=== PATIENT | male | born 1960 | race Caucasian/White ===

== ENCOUNTER 2022-03-16 09:18 | Day surgery (SDC) | payer OTHER, SELFPAY ==
[2022-03-16] VITALS (7 sets, daily range): BP systolic 98–128; BP diastolic 7–80; PULSE 49–61; RESP 16–61; TEMP 36.1–36.6; O2SAT 96–98; BMI 28.5
--- NOTE | 2022-03-16 | GASB_PTH ---
PATIENT: JUANITA HEATH LOC: EN U#:[id number] AGE/SX: 61/M ROOM: RE03/16/[address]: Dr. Narayan Diaz MD : 1960 BED: DIS: 03/16/2022 SPEC #: [id number] RECD: 03/16/22 14:14 STATUS: DRE JAZLYN #: [id number] TAWNY: 03/16/22 00:[address]: Narayan Diaz DEPT: SURGICAL PATHOLOGY RECD BY: Michele Franklin ENTERED: 03/16/22 14:15 SP TYPE: Gastric Bx OTHR DR: [facility] Tissues: A - Duodenum, NOS B - Gastric mucous membrane C - Esophageal mucous membrane D - Sigmoid colon biopsy Procedures: Special Stain Group II Surgery Specimen Level IV Alcian Blue/PAS (control) HEADER OPERATION: Colonoscopy with polypectomy, [place] PRE-OP DIAGNOSIS: GERD, screening TISSUE SUBMITTED: A ? Duodenum, B ? Antrum biopsy for H. pylori and path, C ? Distal esophagus biopsy, D ? Polyp biopsy distal sigmoid MICROSCOPIC DIAGNOSIS A. Duodenum, biopsy: A fragment of duodenal mucosa, no pathologic diagnosis. B. Antrum, biopsy: Mild gastritis. See microscopic description and comment. C. Distal esophagus, biopsy: Fragments of gastroesophageal mucosa with chronic inflammation. Intestinal metaplasia (goblet cell metaplasia) not identified. See comment. D. Distal sigmoid polyp, biopsy: Hyperplastic polyp. SJ:tamara 03/17/2022 COMMENT B. The results of immunohistochemistry for Helicobacter pylori will be reported separately ([id number]). C. Alcian blue/PAS stain with matched control is used in the evaluation of the specimen. MICROSCOPIC DESCRIPTION Slides are reviewed. B. The specimen shows fragments of gastric mucosa with chronic inflammatory cell infiltrates in the lamina propria consisting of lymphocytes and plasma cells, consistent with mild chronic gastritis. GROSS DESCRIPTION A - Received in fixative is one container labeled with the patient's name and designated duodenum. The specimen consists of one irregular fragment of light arcos soft tissue that measures 0.3 x 0.3 x 0.1 cm. The specimen is totally submitted in one cassette. B - Received in fixative is one container labeled with the patient's name and designated antrum biopsy. The specimen consists of one irregular fragment of light arcos soft tissue that measures 0.3 x 0.3 x 0.1 cm. The specimen is totally submitted in one cassette. C - Received in fixative is one container labeled with the patient's name and designated distal esophagus biopsy. The specimen consists of multiple irregular fragments of light arcos soft tissue that in aggregate measure 1 x 0.2 x 0.1 cm. The specimen is totally submitted in one cassette. D - Received in fixative is one container labeled with the patient's name and designated polyp biopsy distal sigmoid. The specimen consists of multiple irregular fragments of light arcos soft tissue that in aggregate measure 1 x 0.3 x 0.1 cm. The specimen is totally submitted in one cassette. / CAYLA:tamara 03/16/2022 TC:3 CPT: 16081 x4, 15868
[2022-03-16] MEDS: Lactated Ringers 1,000 ML 15 ML IV (09:58)
--- NOTE | 2022-03-16 10:03 | HP.PCM_ITS ---
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 Is patient in pain?: No Allergies No Known Allergies Allergy (Unverified 03/02/22 15:34) Medications aspirin 81 mg tablet,delayed release (Adult Low Dose Aspirin) 81 mg PO DAILY PRN 03/02/22 [History Confirmed 03/02/22] atorvastatin 20 mg tablet 20 mg PO DAILY 03/02/22 [History Confirmed 03/02/22] magnesium 200 mg tablet 200 mg PO DAILY 03/02/22 [History Confirmed 03/02/22] multivitamin 1 tab PO DAILY 03/02/22 [History Confirmed 03/02/22] omeprazole 20 mg capsule,delayed release 20 mg PO DAILY 03/02/22 [History Confirmed 03/02/22] vitamin B complex 1 cap PO DAILY 03/02/22 [History Confirmed 03/02/22] PFSH Medical History?(Updated 03/02/22 @ 15:30 by Christina Campa) H/O blood clots Hemorrhoids Hyperlipidemia Family History?(Updated 03/02/22 @ 15:32 by Christina Campa) Sister Abdominal aneurysm Social History Smoking Status:? Current every day smoker alcohol intake:? former substance use type:? marijuana HPI HPI HPI: 61-year-old gentleman is being referred by the [place] [facility] for surgical consultation regarding fecal incontinence and possible benefit of colonoscopy and/or esophagogastroduodenoscopy and a written compromise surgical consult recommendations will return to them.? And additionally he has gastroesophageal reflux disease..? The patient states that he has had reflux for at least 15 y ears.? He is on omeprazole therapy.? He has never had an upper endoscopy.? He claims to have been adopted so he does not know his family history.? He has had no previous colonoscopy. He denies having had a previous myocardial infarction or stroke.? 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 He states he did not present for medical care until quite late. He states that one of his physicians have suggested that he be on a low-dose 81 mg aspirin daily and another 1 has not.? The patient seems to be inconsistent with this and is not on a routine schedule. He has been almost a lifelong a pack per day cigarette smoker.? It has been recommended to him that he sees and he has been prescribed Chantix therapy.? He is concerned because information from veterans [employer] suggest that veterans do not do well with Chantix and that it makes him angry.? I did suggest to him that it is all in the mindset of desiring and being willing to stop smoking that will energize him to cease. He does not claim significant alcohol use. ROS General General: No weight change, appetite, fatigue, colon cancer, breast cancer or weakness HEENT HEENT: No difficulty swallowing, eye injury, eye surgery, swollen glands or hoarseness Endo Endocrine: No thyroid disease, diabetes mellitus, thyroid cancer, Hair loss, heat intolerance or cold intolerance Skin Skin: No rash or changing moles Breast Breast: No left breast lump, right breast lump, nipple discharge, breast pain, abnormal mammogram, abnormal US or breast enlargement Musc Musculoskeletal: Yes back problems; No arthritis, rheumatoid arthritis, gout or joint pain Cardio Cardiovascular: No murmur, pacemaker, heart disease, atrial fibrillation, high blood pressure, heart attack, heart stent, palpitations, shortness of breat with exertion or chest pain Psych Psychiatric: No depression, anxiety or hearing voices Resp Respiratory: No shortness of breath, No sleep apnea, Yes cough, No COPD, No asthma, No emphysema and No wheezing Gastro Gastrointestinal: No abdominal pain, No nausea or vomiting, No diarrhea, No constipation, No blood in stool, Yes acid reflux, Yes hemorrhoids, No ulcers, No gallbladder problem and No black,tarry stools Vic Hematologic: No blood thinners, No blood disorders, No bleeding, No anemia and Yes blood clots Neuro Neurologic: No system reviewed and no additional complaints, except as documented, No as per HPI, No abnormal gait, No abnormal hearing, No abnormal movements, No abnormal speech, No behavioral changes, No burning sensations, No confusion, No convulsions, No disequilibrium, No dizziness, No localized weakness, No frequent falls, No headache(s), No lack of coordination, No loss of vision, No memory loss, No numbness, No other visual disturbances, No radicular pain, No restless legs, No sensory deficit, No syncope, No tingling, No tremor(s), No weakness and No other Exam Const General: cooperative, comfortable and no acute distress Nutritional Appearance: average body habitus Other: Heavy odor of tobacco HENMT Head: normal to inspection Eyes General: appearance normal, both eyes and all related structures Neck Neck: normal visual inspection Other: Carotids 2+ bilaterally Chest Other: Increased anterior posterior diameter Resp Effort & Inspection: normal respiratory effort Auscultation: clear to auscultation bilaterally Cardio Rate: regular rate Rhythm: regular rhythm GI Palpation: soft and no hepatosplenomegaly Auscultation: normal bowel sounds Musc Cervical Spine: normal cervical lordosis Skin General: no rashes or lesions noted Neuro General: patient alert, patient awake and patient oriented x3 Extrem General: no calf tenderness Psych Appearance: grossly normal Assessment and Plan Assessment and Plan (1) GERD (gastroesophageal reflux disease): ?Status:?Acute (2) Screening for intestinal cancer: ?Status:?Acute Plan I recommend the patient a esophagogastroduodenoscopy with possible biopsy and very careful inspection due to his long-term history of reflux disease. I recommended the patient a screening colonoscopy with possible biopsy or polypectomy as indicated as well.? He has had an opportunity to ask and have questions answered regarding these procedures and he is interested in pursuing. I have vigorously encouraged the patient to cease his tobacco use. The patient's had an opportunity to ask and have questions answered.? We will schedule and proceed at his discretion.? I very much appreciate the kind opportunity of assisting with the surgical care. Copy: [facility] Narayan Diaz M.D., F.A.C.S I have examined the patient and the H&P has been reviewed. There are no clinical changes since date of exam. Narayan Diaz M.D., F.A.C.S.
--- NOTE | 2022-03-16 10:30 | IMM_PTH ---
PATIENT: JUANITA HEATH LOC: EN U#:[id number] AGE/SX: 61/M ROOM: RE03/16/[address]: Dr. Narayan Diaz MD : 1960 BED: DIS: 03/16/2022 SPEC #: [id number] RECD: 03/16/22 14:45 STATUS: DRE REQ #: [id number] TAWNY: 03/16/22 10:[address]: Narayan Diaz DEPT: IMMUNOHISTOCHEMISTRY RECD BY: Bhumika Khalil ENTERED: 03/16/22 14:45 SP TYPE: IMMUNO OT DR: [facility] Tissues: B - Stomach, NOS Procedures: H Pylori (initial) PHYSICIAN & INSTITUTION [place] [id number] SPECIMEN INFORMATION: Tissue Source: B ? Antrum biopsy Clinical Info: GERD, screening Specimen Number: [id number] CPT code: 22616 METHODOLOGY: Deparaffinized sections of prefer/formalin-fixed tissue or PAP/DQ stained slides are incubated with monoclonal/polyclonal antibodies/oligonucleotide probes. Localization is made via biotin free immunoperoxidase method. Appropriate controls are performed and reacted as expected. Results on target cell population are indicated in the following table: RESULTS: ANTIBODY / CLONE RESULT Block B H Pylori (polyclonal) negative These tests were developed and their performance characteristics determined by [facility]. They may not have been cleared or approved by the U.S. Food and Drug Administration. The FDA has determined that such clearance or approval is not necessary. The above immunohistochemical/dualISH markers are ordered and reviewed by the Pathologist. INTERPRETATION: B. Antrum, biopsy: Negative for Helicobacter pylori organisms. SJ:tamara 03/17/2022
--- NOTE | 2022-03-16 10:55 | OP.EGD_ITS ---
Patient Name: Jack Guajardo Procedure Date: 03/16/2022 10:07 AM Date of : 1960 Age: 61 Procedure: Upper GI endoscopy Indications: Suspected esophageal reflux Providers: Narayan Diaz MD Medicines: See the Anesthesia note for documentation of the administered medications Complications: No immediate complications. Procedure: Pre-Anesthesia Assessment: - Prior to the procedure, a History and Physical was performed, and patient medications and allergies were reviewed. The patient's tolerance of previous anesthesia was also reviewed. The risks and benefits of the procedure and the sedation options and risks were discussed with the patient. All questions were answered, and informed consent was obtained. Prior Anticoagulants: The patient has taken no previous anticoagulant or antiplatelet agents. ASA Grade Assessment: II - A patient with mild systemic disease. After reviewing the risks and benefits, the patient was deemed in satisfactory condition to undergo the procedure. After obtaining informed consent, the endoscope was passed under direct vision. Throughout the procedure, the patient's blood pressure, pulse, and oxygen saturations were monitored continuously. The Colonoscope was introduced through the mouth, and advanced to the second part of duodenum. The upper GI endoscopy was accomplished without difficulty. The patient tolerated the procedure well. Scope In: 10:16:08 AM Scope Out: 10:25:22 AM Total Procedure Duration Time 0 hours 9 minutes 14 seconds Findings: LA Grade A (one or more mucosal breaks less than 5 mm, not extending between tops of 2 mucosal folds) esophagitis with no bleeding was found 40 cm from the incisors. Biopsies were taken with a cold forceps for histology. A 1 cm hiatal hernia was present. Diffuse mildly erythematous mucosa without bleeding was found in the gastric antrum. Biopsies were taken with a cold forceps for histology. The examined duodenum was normal. Biopsies were taken with a cold forceps for histology. Impression: - LA Grade A reflux esophagitis. Biopsied. - 1 cm hiatal hernia. - Erythematous mucosa in the antrum. Biopsied. - Normal examined duodenum. Biopsied. Recommendation: - Discharge patient to home. - Resume previous diet. - Continue present medications. - Telephone my office for pathology results in 1 week. Clinical findings suggest mild gastritis and very mild reflux changes. Procedure Code(s): --- Professional --- 56049, Esophagogastroduodenoscopy, flexible, transoral; with biopsy, single or multiple Diagnosis Code(s): --- Professional --- K21.0, Gastro-esophageal reflux disease with esophagitis K44.9, Diaphragmatic hernia without obstruction or gangrene K31.89, Other diseases of stomach and duodenum CPT copyright 2017 [employer]. All rights reserved. The codes documented in this report are preliminary and upon plane tender review may be revised to meet current compliance requirements. Narayan Diaz MD 03/16/2022 10:54:24 AM This report has been signed electronically. Number of Addenda: 0 Note Initiated On: 03/16/2022 10:07 AM
--- NOTE | 2022-03-16 10:55 | OP.CCLET_ITS ---
03/16/2022 [facility] Re : Upper GI endoscopy procedure for Jack [facility] This procedure was performed on Wednesday, March 16, 2022. My impressions and recommendations are as follows: Impressions : - LA Grade A reflux esophagitis. Biopsied. - 1 cm hiatal hernia. - Erythematous mucosa in the antrum. Biopsied. - Normal examined duodenum. Biopsied. Recommendations : - Discharge patient to home. - Resume previous diet. - Continue present medications. - Telephone my office for pathology results in 1 week. Clinical findings suggest mild gastritis and very mild reflux changes. My findings are described in the full procedure note, which is enclosed. If I can be of further assistance, please feel free to contact me at Doctor phone number(s): Work: . Sincerely, Narayan Diaz MD 03/16/2022 10:54:24 AM This report has been signed electronically.
--- NOTE | 2022-03-16 10:58 | OP.COLON_ITS ---
Patient Name: Jack Guajardo Procedure Date: 03/16/2022 10:26 AM Date of : 1960 Age: 61 Procedure: Colonoscopy Indications: Screening for colorectal malignant neoplasm Providers: Narayan Diaz MD Medicines: See the Anesthesia note for documentation of the administered medications Patient Profile: Last Colonoscopy: none. The patient's first colonoscopy is today. Complications: No immediate complications. Procedure: Pre-Anesthesia Assessment: - Prior to the procedure, a History and Physical was performed, and patient medications and allergies were reviewed. The patient's tolerance of previous anesthesia was also reviewed. The risks and benefits of the procedure and the sedation options and risks were discussed with the patient. All questions were answered, and informed consent was obtained. Prior Anticoagulants: The patient has taken no previous anticoagulant or antiplatelet agents. ASA Grade Assessment: II - A patient with mild systemic disease. After reviewing the risks and benefits, the patient was deemed in satisfactory condition to undergo the procedure. After I obtained informed consent, the scope was passed under direct vision. Throughout the procedure, the patient's blood pressure, pulse, and oxygen saturations were monitored continuously. The Colonoscope was introduced through the anus and advanced to the cecum, identified by appendiceal orifice and ileocecal valve. The colonoscopy was performed without difficulty. The patient tolerated the procedure well. The quality of the bowel preparation was good. The ileocecal valve and the appendiceal orifice were photographed. Scope In: 10:27:37 AM Scope Withdrawal Time 0 hours 16 minutes 27 seconds Scope Out: 10:48:48 AM Total Procedure Duration Time 0 hours 21 minutes 11 seconds Findings: The digital rectal exam findings include non-thrombosed external hemorrhoids, non-thrombosed internal hemorrhoids and internal hemorrhoids that prolapse with straining, but spontaneously regress to the resting position (Grade II). Pertinent negatives include normal prostate (size, shape, and consistency). Two sessile polyps were found in the distal sigmoid colon. The polyps were 3 to 4 mm in size. These polyps were removed with a cold snare. Resection and retrieval were complete. Multiple diverticula were found in the sigmoid colon. The exam was otherwise without abnormality. Impression: - Non-thrombosed external hemorrhoids, non-thrombosed internal hemorrhoids and internal hemorrhoids that prolapse with straining, but spontaneously regress to the resting position (Grade II) found on digital rectal exam. - Two 3 to 4 mm polyps in the distal sigmoid colon, removed with a cold snare. Resected and retrieved. - Diverticulosis in the sigmoid colon. - The examination was otherwise normal. Recommendation: - Discharge patient to home. - Resume previous diet. - Continue present medications. - Repeat colonoscopy in 5 years for surveillance based on pathology results; 10-year follow-up if polyp is hyperplastic - Telephone my office for pathology results in 1 week. Procedure Code(s): --- Professional --- 81084, Colonoscopy, flexible; with removal of tumor(s), polyp(s), or other lesion(s) by snare technique Diagnosis Code(s): --- Professional --- Z12.11, Encounter for screening for malignant neoplasm of colon K64.1, Second degree hemorrhoids K64.4, Residual hemorrhoidal skin tags D12.5, Benign neoplasm of sigmoid colon K57.30, Diverticulosis of large intestine without perforation or abscess without bleeding CPT copyright 2017 [employer]. All rights reserved. The codes documented in this report are preliminary and upon financial institution treasurer review may be revised to meet current compliance requirements. Narayan Diaz MD 03/16/2022 10:58:26 AM This report has been signed electronically. Number of Addenda: 0 Note Initiated On: 03/16/2022 10:26 AM
--- NOTE | 2022-03-16 10:59 | OP.CCLET_ITS ---
03/16/2022 [facility] : [facility] was performed on Wednesday, March 16, 2022. My impressions and recommendations are as follows: Impressions : - Non-thrombosed external hemorrhoids, non-thrombosed internal hemorrhoids and internal hemorrhoids that prolapse with straining, but spontaneously regress to the resting position (Grade II) found on digital rectal exam. - Two 3 to 4 mm polyps in the distal sigmoid colon, removed with a cold snare. Resected and retrieved. - Diverticulosis in the sigmoid colon. - The examination was otherwise normal. Recommendations : - Discharge patient to home. - Resume previous diet. - Continue present medications. - Repeat colonoscopy in 5 years for surveillance based on pathology results; 10-year follow-up if polyp is hyperplastic - Telephone my office for pathology results in 1 week. My findings are described in the full procedure note, which is enclosed. If I can be of further assistance, please feel free to contact me at Doctor phone number(s): Work: . Sincerely, Narayan Diaz MD 03/16/2022 10:58:26 AM This report has been signed electronically.
== END 2022-03-16 11:38 | disposition home or self-care (01) ==
LOC: EN 09:19 → AC 09:47
PROVIDERS: Visit Provider Surgery
PROC: 0DJD8ZZ Inspection of Lower Intestinal Tract, Via Natural or Artificial Opening Endoscopic (ICD-10-PCS; CPT 45378; principal; 2022-03-16 10:25)
DX: Z12.11 Encounter for screening for malignant neoplasm of colon (principal); K63.5 Polyp of colon; K57.30 Diverticulosis of large intestine without perforation or abscess without bleeding; K29.70 Gastritis, unspecified, without bleeding; K64.1 Second degree hemorrhoids; K44.9 Diaphragmatic hernia without obstruction or gangrene; K21.00 Gastro-esophageal reflux disease with esophagitis, without bleeding; K64.4 Residual hemorrhoidal skin tags; R15.9 Full incontinence of feces; E78.5 Hyperlipidemia, unspecified; F17.210 Nicotine dependence, cigarettes, uncomplicated; Z79.82 Long term (current) use of aspirin; Z79.899 Other long term (current) drug therapy
CPT/HCPCS: 45385; 43239; 88305; 88313; 88342; J7120; J2405